=== PATIENT | female | born 1970 | race Caucasian/White ===

== ENCOUNTER 2023-06-06 13:27 | Outpatient (AMB) | payer OTHER, SELFPAY ==
--- NOTE | 2023-06-06 13:31 | A.OFFPC_ITS ---
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 Last pap approx 3 years ago in [place]. Last Mammo 2 years ago. Allergies rosuvastatin Allergy (Intermediate, Verified 06/06/23 14:22) Unknown Medication List - Last Reconciled 06/06/23 by ROMEO Freeman clonazepam 1 mg PO TID PRN paroxetine HCl 20 mg PO DAILY zolpidem 10 mg PO BEDTIME PRN Tobacco use date assessed: 06/06/23 Dental Screening Dental Screen Date: 06/06/23 Did you have a dental visit in the last 12 months?: Yes Did you have a dental problem in the last 6 months where you did not have access to dental care?: No Was dental information given to patient?: Patient has dentist HPI HPI Comments History of Present Illness Details Patient is a 52-year-old female here to establish care. Her last Pap smear was 3 years ago, will refer to [facility]LE [facility]OR. Patient's last mammogram was 2 years prior in [place] where she moved from, will order. Patient is immunized however did not get the booster for influenza or COVID this year. She has a past medical history significant for anxiety and depression, has a strong family history of hyperlipidemia. She has tried rosuvastatin in the past which gave GI problems and the patient stopped taking the medication. The patient then moved up here from [place]. Will draw a new set of labs and treat accordingly She has a past surgical history involving the left vocal cord, which was experiencing paralysis. She a thyroplasty and needs a new ENT specialist, will refer. [facility] Medical History (Updated 06/06/23 @ 14:40 by ROMEO Freeman) Insomnia Depression Anxiety Surgical History (Updated 06/06/23 @ 14:33 by ROMEO Freeman) H/O of thyroplasty Family History Mother Acute rheumatoid arthritis Paternal Aunt Hypertension Social History (Reviewed 06/06/23 @ 14:33 by SHERI Freeman Housing: House Alcohol intake: current Comment: 1 to 2 glasses of wine. Patient Tobacco Use Status: Former Tobacco user Cigarettes Per Day: 10 Years Smoked: 25 e-Cigarette/Vaping Use: Never Used service: No Current occupational status: employed Cognitive needs: No Hearing needs: No Vision needs: Yes Questionnaire PHQ-9 Over the last 2 weeks, how often have you been bothered by any of the following problems? Depression Screening Done: No Source: Developed by Drs. Pasquale Meyer, Maia Cardenas, Tyler Masterson and colleagues, with an educational lydia from [employer]. AUDIT C Alcohol Use Questionnaire (AUDIT-C) 1. How often do you have a drink containing alcohol?: Monthly or less 2. How many drinks containing alcohol do you have on a typical day when you are drinking?: 1 or 2 3. How often do you have six or more drinks on one occasion?: Never Total Score: 1 Score Reviewed/Action Taken: Yes LIZETH-7 AMB Questionnaire LIZETH-7 Assessment Billing LIZETH-7 Assessment Tool: pt declined-do not bill Review of Systems Const Details: Constitutional : No Weight loss, No Fever, No Chills, No Fatigue, No Malaise ENT/Mouth : No sore throat, No Rhinorrhea. Eyes: No Eye Pain, No Swelling, No Redness Cardiovascular : No Chest Pain, No SOB, No Dyspnea on Exertion, No Orthopnea, No Edema, No Palpitations Respiratory : No Cough, No Sputum, No Wheezing Gastrointestinal : No Nausea, No Vomiting, No Diarrhea, No Constipation, No abdominal Pain, No Hematochezia, No Melena Genitourinary : No Dysuria, No Urinary Frequency, No Hematuria, Musculoskeletal : No joint pain, No Myalgias, No Joint Swelling Skin : No Skin Lesions, No rash Neuro : No Weakness, No Numbness, No Dizziness, No Headache Psych : Admits controlled Anxiety/Panic, No Depression Heme/Lymph: No Bruising, No Bleeding,No Lymphadenopathy Endocrine : No Polyuria, No Polydipsia All other systems reviewed and are negative Physical exam (Primary Care) Vital Signs: Last Vital Signs Pulse 84 06/06/23 13:34 Pulse Ox 96 06/06/23 13:34 Oxygen Delivery Method Room Air 06/06/23 13:34 Care Plan Goal for BP management: Vital signs reviewed stable. BMI result Body Mass Index 23.3 Const Other: Appearance: Alert.? Oriented X3.? No acute distress.? ENT: Pharynx normal.? Neck: Normal inspection.? Neck supple.?Full ROM CVS: Normal heart rate and rhythm.? Pulses normal.? Respiratory: No respiratory distress.? Breath sounds normal.? Neuro: Oriented X 3.? No motor deficit.? No sensory deficit. CN 2-12 intact Assessment and Plan Assessment & Plan (1) Vocal cord paralysis: Comment: Patient has history and procedure of vocal cord paralysis. Recently moved up to [place] from [place] needs establish new ENT specialist. Will refer. Code(s): J38.00 - Paralysis of vocal cords and larynx, unspecified (2) Cold sore: Comment: Patient has history of recurrent cold sores. Will prescribe acyclovir topical cream to be applied as directed. Code(s): B00.1 - Herpesviral vesicular dermatitis Plan: Take your medications as prescribed. If you were prescribed antibiotics today, it is important that you take your medication to their entirety, do not skip any doses, do not finish them early. Follow-up with your primary care provider this week. Return to the emergency department with new or worsening symptoms. Such as fevers, chills, chest pain, shortness of breath, nausea, vomiting, dizziness, headache, vision changes, lethargy In case of emergency call 911 Plan Patient will follow-up with annual physical exam in 4-5 months. Orders: Orders Comprehensive [place]. Panel Fast Today Z91.89 - Other specified personal risk factors, not elsewhere classified Complete Blood Count Auto Diff Today Z13.0 - Encounter for screening for diseases of the blood and blood-forming organs and certain disorders involving the immune mechanism Lipid Panel Today Z13.220 - Encounter for screening for lipoid disorders Vitamin B6 Today Z13.21 - Encounter for screening for nutritional disorder Vitamin D 1,25 dihydroxy Today Z13.21 - Encounter for screening for nutritional disorder Vitamin D 25-OH (D2 and D3) Today Z13.21 - Encounter for screening for nutritional disorder Vitamin B12 Today Z13.21 - Encounter for screening for nutritional disorder TSH reflex Free T4 Today Z13.29 - Encounter for screening for other suspected endocrine disorder UA CC w/rflx Micro + Cult Today E86.0 - Dehydration Medications: New acyclovir 5% 1 appl topical ONCE 5 grams 0RF Coding Level of Care Code New Pt Level 4 (02821) Diagnoses Vocal cord paralysis J38.00 Cold sore B00.1 Time Spent (min) 45
[2023-06-06 13:34] VITALS: BP 126/82; PULSE 84; O2SAT 96; BMI 23.3
== END 2023-06-06 16:08 | disposition home or self-care (01) ==
PROVIDERS: Visit Provider Nurse Practitioner Primary Care
DX: J38.00 Paralysis of vocal cords and larynx, unspecified (principal); B00.1 Herpesviral vesicular dermatitis
CPT/HCPCS: 99204

== ENCOUNTER 2023-06-06 14:15 | Outpatient (REF) | payer OTHER, SELFPAY ==
[2023-06-06 16:03] LABS: Appearance Urine Clear; Color Urine Yellow; Glucose Urine UA Negative (Negative); Leukocyte Esterase Urine Trace (Negative); MANUAL DIFF FLAG NO; Nitrite Urine Negative (Negative); PH 7.5 (5.0-9.0); Specific Gravity - Urine <= 1.005 (1.005-1.025); UMIC TRIGGER UACC YES; Urine Blood Negative (Negative); Urine Ketones Negative (Negative); Urine Protein Negative (Neg-Trace)
[2023-06-06 16:06] LABS: Bacteria Urine None Seen (None Seen); Hyaline Casts Urine 0-2 /LPF (0-2); RBC Urine 0-2 /HPF (0-2); Squamous Epithelial Cell Urine 0-2 /HPF (0-2); WBC Urine 0-5 /HPF (0-5)
[2023-06-06 16:19] LABS: Basophils Percent Auto 0.7 % (0-2); Eosinophils Absolute Auto 0.1 X10*3/uL (0.0-0.4); Eosinophils Percent Auto 0.9 % (0-4); Hematocrit 38.5 % (37.0-47.0); Hemoglobin 12.9 g/dl (12.0-16.0); Imm Gran Abs Auto 0.02 X10*3/uL (0.00-0.03); Imm Gran Pct Auto 0.4 % (0.0-0.4); Lymphocytes Absolute Auto 1.7 X10*3/uL (1.2-4.9); Lymphocytes Percent Auto 31.6 % (20-40); Mean Corpuscular HGB Conc 33.5 g/dl (31.0-35.0); Mean Corpuscular Hemoglobin 31.4 pg (27.0-33.0); Mean Corpuscular Volume 93.7 fL (80.0-98.0); Mean Platelet Volume 10.2 fL (9.4-12.3); Monocytes Absolute Auto 0.4 X10*3/uL (0.1-1.2); Monocytes Percent Auto 7.7 % (2-11); Neutrophils Absolute Auto 3.2 x10*3/uL (2.0-8.3); Neutrophils Percent Auto 58.7 % (45-73); Platelet Count 268 X10*3/uL (160-400); Red Blood Count 4.11 X10*6/uL (4.20-5.50); Red Cell Distribution Width 13.1 % (11.0-16.0); White Blood Count 5.4 X10*3/uL (4.8-10.8)
[2023-06-06 16:26] LABS: Alanine Aminotransferase 28 U/L (0-31); Albumin Level 4.4 g/dL (3.5-5.0); Alkaline Phosphatase 73 U/L (39-117); Anion Gap 13 (12-20); Aspartate Amino Transferase 27 U/L (5-31); Bilirubin Total 0.5 mg/dL (0.0-1.0); Blood Urea Nitrogen 9 mg/dL (9-16); Calcium 10.3 mg/dL (8.4-10.2); Carbon Dioxide 26 mmol/L (22-29); Chloride 104 mmol/L (96-108); Cholesterol 305 mg/dL (<200); Estimated Glomerular Filt Rate > 60; Glucose Fasting 84 mg/dL (60-99); HDL Cholesterol 84 mg/dL (>40); LDL Cholesterol Calculated 194 mg/dL (<100); Potassium 4.1 mmol/L (3.3-5.1); Sodium 139 mmol/L (135-145); Triglycerides 136 mg/dL (<150)
[2023-06-06 16:42] LABS: TSH reflex Free T4 2.71 uIU/mL (0.32-4.0)
[2023-06-06 16:44] LABS: Vitamin B12 308 pg/mL (200-900)
[2023-06-10 12:39] LABS: Vitamin B6 17.1 ng/mL (2.1-21.7)
[2023-06-11 01:28] LABS: VITAMIN D (1,25 OH) D3 32 pg/mL; Vit D (1,25-Dihydroxy) Total 32 pg/mL (18-72); Vitamin D (1,25 OH) D2 <8 pg/mL
[2023-06-12 14:33] LABS: Vitamin D 25-OH, D2 <4 ng/mL; Vitamin D 25-OH, D3 7 ng/mL; Vitamin D 25-OH, Total 7 ng/mL (30-100)
== END 2023-06-06 14:16 | disposition home or self-care (01) ==
LOC: HO.HMGCLDS 14:15
PROVIDERS: PCP Nurse Practitioner Primary Care; Visit Provider Nurse Practitioner Primary Care
DX: E86.0 Dehydration (principal); Z13.220 Encounter for screening for lipoid disorders; Z13.21 Encounter for screening for nutritional disorder; Z13.29 Encounter for screening for other suspected endocrine disorder; Z91.89 Other specified personal risk factors, not elsewhere classified; Z13.0 Encounter for screening for diseases of the blood and blood-forming organs and certain disorders involving the immune mechanism
CPT/HCPCS: 36415; 80053; 80061; 81001; 81003; 82306; 82607; 82652; 84207; 84443; 85025

== ENCOUNTER 2023-07-22 13:57 | Emergency (ER) | payer OTHER, SELFPAY ==
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
[2023-07-22 14:15] VITALS: PULSE 113; RESP 22; TEMP 37.1; O2SAT 99; BMI 25.8
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
== END 2023-07-22 15:44 | disposition left against medical advice (07) ==
PROVIDERS: Emergency Provider Emergency Medicine
DX: Z04.71 Encounter for examination and observation following alleged adult physical abuse (principal)
CPT/HCPCS: 70450; 70486; 72125; 99281; 99284

== ENCOUNTER 2023-08-17 13:48 | Outpatient (REF) | payer OTHER, SELFPAY ==
[2023-08-25 23:29] LABS: HPV mRNA E6/E7 rflx Not Detected (Not Detected)
== END 2023-08-17 13:49 | disposition home or self-care (01) ==
LOC: HO.LNP 13:48
PROVIDERS: PCP Nurse Practitioner Primary Care; Visit Provider Obstetrics & Gynecology
DX: Z01.419 Encounter for gynecological examination (general) (routine) without abnormal findings (principal); Z11.51 Encounter for screening for human papillomavirus (HPV); Z78.0 Asymptomatic menopausal state
CPT/HCPCS: 87624; 88142; 99386

== ENCOUNTER 2023-08-17 13:48 | Outpatient (AMB) | payer OTHER, SELFPAY ==
[2023-08-17 13:58] VITALS: BP 114/62; BMI 20.2
--- NOTE | 2023-08-17 13:58 | A.OFFVIS_ITS ---
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 No complaints. Last Pap/HPV was few years ago Last Mammogram was 2 years ago Last Colonoscopy was 5 years ago, the recommendation was to repeat in 5 years [facility] Medical History Insomnia Depression Anxiety Surgical History H/O of thyroplasty Family History Mother Acute rheumatoid arthritis Paternal Aunt Hypertension Maternal Aunt Ovarian cancer Maternal Aunt Breast cancer Social History Housing: House Alcohol intake: current Comment: 1 to 2 glasses of wine. Patient Tobacco Use Status: Former Tobacco user Cigarettes Per Day: 10 Years Smoked: 25 e-Cigarette/Vaping Use: Never Used Patient : No service: No Current occupational status: employed Cognitive needs: No Hearing needs: No Vision needs: Yes Female Reproductive History Menstrual Age of Menarche: 11 control method: none Total pregnancies: 2 Full term: 1 Number of Living Children: 1 Review of Systems Const All systems reviewed & are unremarkable except as noted in HPI and below Card Reports as per HPI Resp Reports as per HPI GI Reports as per HPI and Reports no additional complaints Reports as per HPI Physical Exam Vital Signs: Last Vital Signs BP 114/62 08/17/23 13:58 BMI result Body Mass Index 20.2 Const General: cooperative, healthy appearing and comfortable Chest Chest palpation & inspection: normal inspection of the chest and normal palpation of entire chest wall Breast/axilla inspection: normal inspection of the breasts and normal inspection of the axillae Breast/axilla palpation: normal palpation of the breasts, normal palpation of the axillae and no axillary lymphadenopathy Resp Effort & Inspection: normal respiratory effort Auscultation: clear to auscultation bilaterally Percussion: percussion normal Cardio Palpation: normal PMI Rate: regular rate Rhythm: regular rhythm Heart sounds: no murmurs and no rubs Peripheral pulses: Peripheral pulses 2+ throughout GI Inspection: Yes normal to inspection Palpation (GI): Soft to palpation, nontender, no guarding, not rigid and No hepatosplenomegaly present Percussion: Yes normal to percussion Auscultation: normal bowel sounds Rectal Exam - Female: deferred General: Yes bladder normal to palpation External Female Exam: No lesion Speculum Exam - Vagina: normal appearance of the vagina, normal palpation, normal vaginal discharge and not erythematous Speculum Exam - Cervix: normal appearance of the cervix and normal palpation Bimanual exam- vagina & uterus: normal bimanual exam, normal palpation, uterine size normal, bladder normal to palpation, consistency normal and normal palpation Bimanual Exam- Adnexa, other: normal adnexae, no masses and no tenderness Assessment & Plan Assessment & Plan (1) Well woman exam: Code(s): Z01.419 - Encounter for gynecological examination (general) (routine) without abnormal findings Plan: Co testing done. Counseled the patient about the recommended dietary allowance of 1200 mg of Calcium & 600 IU of vitamin D. Mammogram ordered. The patient was referred to GI for screening colonoscopy . The patient was instructed to perform monthly self-breast exams and schedule annual exam in a year. All questions answered and the patient verbalized understanding. Orders: Orders MM tomosynthesis screening BI Today Z12.31 - Encounter for screening mammogram for malignant neoplasm of breast Referrals Gastroenterology Referral Z12.11 - Encounter for screening for malignant neoplasm of colon Coding Level of Care Code New Pt Prev Care 40-64y(87743) Diagnoses Well woman exam Z01.419
== END 2023-08-17 14:33 | disposition home or self-care (01) ==
PROVIDERS: PCP Nurse Practitioner Primary Care; Visit Provider Obstetrics & Gynecology
DX: Z01.419 Encounter for gynecological examination (general) (routine) without abnormal findings (principal)
CPT/HCPCS: 99386

== ENCOUNTER 2023-11-03 14:01 | Outpatient (AMB) | payer OTHER, SELFPAY ==
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
[2023-11-03 14:06] VITALS: BP 116/80; PULSE 95; O2SAT 98; BMI 20.3
== END 2023-11-03 15:10 | disposition home or self-care (01) ==
LOC: HO.HMGC 14:01
PROVIDERS: PCP Nurse Practitioner Primary Care; Visit Provider Nurse Practitioner Primary Care
DX: M79.641 Pain in right hand (principal); M25.561 Pain in right knee; M25.562 Pain in left knee; E78.00 Pure hypercholesterolemia, unspecified
CPT/HCPCS: 99214

== ENCOUNTER 2023-11-03 15:14 | Outpatient (REF) | payer OTHER, SELFPAY ==
--- NOTE | ~2023-11-03 | XR_ITS ---
EXAMINATION: BILATERAL KNEES, RIGHT HAND CLINICAL INFORMATION: Bilateral knee pain and right hand COMPARISON: None available. TECHNIQUE: 4 views each knee, 3 views right hand FINDINGS: No significant bone, joint or soft tissue abnormality is seen. XR/XR knee LT 4V IMPRESSION: Negative radiographs of the bilateral knees and right hand.
--- NOTE | ~2023-11-03 | XR_ITS ---
EXAMINATION: BILATERAL KNEES, RIGHT HAND CLINICAL INFORMATION: Bilateral knee pain and right hand COMPARISON: None available. TECHNIQUE: 4 views each knee, 3 views right hand FINDINGS: No significant bone, joint or soft tissue abnormality is seen. XR/XR knee RT 4V IMPRESSION: Negative radiographs of the bilateral knees and right hand.
--- NOTE | ~2023-11-03 | XR_ITS ---
EXAMINATION: BILATERAL KNEES, RIGHT HAND CLINICAL INFORMATION: Bilateral knee pain and right hand COMPARISON: None available. TECHNIQUE: 4 views each knee, 3 views right hand FINDINGS: No significant bone, joint or soft tissue abnormality is seen. XR/XR hand RT min 3V IMPRESSION: Negative radiographs of the bilateral knees and right hand.
== END 2023-11-03 15:15 | disposition home or self-care (01) ==
LOC: HO.HMGCX 15:14
PROVIDERS: PCP Nurse Practitioner Primary Care; Visit Provider Nurse Practitioner Primary Care
DX: M79.641 Pain in right hand (principal); M25.561 Pain in right knee; M25.562 Pain in left knee
CPT/HCPCS: 73130; 73564

== ENCOUNTER 2023-12-26 18:03 | Outpatient (REF) | payer OTHER, SELFPAY ==
--- NOTE | ~2023-12-26 | MR_ITS ---
EXAMINATION: MR KNEE WITHOUT CONTRAST, LEFT CLINICAL INFORMATION: Pain in the left knee COMPARISON: X-ray left knee October 2023 TECHNIQUE: MRI of the knee without contrast was performed using routine sequences on a high-field scanner. FINDINGS: MENISCI: Medial Meniscus: Intact Lateral Meniscus: Question tiny tear along the free edge of the body lateral meniscus single coronal image 16 series 19. LIGAMENTS: Cruciate: Intact Collateral: Intact EXTENSOR MECHANISM: Normal ARTICULAR CARTILAGE/BONE: Patellofemoral Compartment: There is minimal cartilage heterogeneity and surface irregularity of the medial facet of the patella with minimal cartilage heterogeneity of the lateral facet. Trochlear cartilage is normal. Overall minimal patellofemoral arthrosis. Medial Compartment: No minimal cartilage heterogeneity of the weightbearing femoral and tibial articular cartilage. Overall minimal arthrosis. Lateral Compartment: Normal JOINT FLUID AND BURSAE: There is a small to moderate-sized Tierney's cyst MR/MR knee LT wo con IMPRESSION: 1. Possible tiny tear along the free edge of the body lateral meniscus. 2. Minimal arthrosis of the patellofemoral compartment and medial compartment. 3. Small to moderate-sized Tierney's cyst. Electronically signed by: Jorge A Bacon MD 12/29/2023 08:50 AM EDT
== END 2023-12-26 18:04 | disposition home or self-care (01) ==
LOC: HO.MRI 18:03
PROVIDERS: PCP Nurse Practitioner Primary Care; Visit Provider Nurse Practitioner Primary Care
DX: M25.562 Pain in left knee (principal)
CPT/HCPCS: 73721

== ENCOUNTER 2024-01-30 12:04 | Outpatient (AMB) | payer OTHER, SELFPAY ==
[2024-01-30 12:41] VITALS: BP 126/90; PULSE 84; O2SAT 100; BMI 21.6
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
== END 2024-01-30 13:21 | disposition home or self-care (01) ==
PROVIDERS: PCP Nurse Practitioner Primary Care; Visit Provider Internal Medicine
DX: E78.5 Hyperlipidemia, unspecified (principal); S83.282A Other tear of lateral meniscus, current injury, left knee, initial encounter; F43.10 Post-traumatic stress disorder, unspecified; E55.9 Vitamin D deficiency, unspecified; E83.52 Hypercalcemia; F51.05 Insomnia due to other mental disorder; F40.9 Phobic anxiety disorder, unspecified

== ENCOUNTER → 2024-01-30 12:04 | Outpatient (BNVA) | payer OTHER, SELFPAY | PROVIDERS: PCP Nurse Practitioner Primary Care; Visit Provider Internal Medicine | DX: F43.10 Post-traumatic stress disorder, unspecified (principal); S83.282D Other tear of lateral meniscus, current injury, left knee, subsequent encounter; E78.5 Hyperlipidemia, unspecified; E83.52 Hypercalcemia; F51.05 Insomnia due to other mental disorder; F40.9 Phobic anxiety disorder, unspecified | CPT/HCPCS: 96127; 99212 ==

== ENCOUNTER 2024-02-08 14:05 | Outpatient (AMB) | payer OTHER, SELFPAY ==
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
[2024-02-08 14:21] VITALS: BMI 21.6
== END 2024-02-08 15:09 | disposition home or self-care (01) ==
PROVIDERS: PCP Nurse Practitioner Primary Care; Visit Provider Physician Assistant
DX: S83.282A Other tear of lateral meniscus, current injury, left knee, initial encounter (principal); M22.42 Chondromalacia patellae, left knee
CPT/HCPCS: 20610; 99203

== ENCOUNTER → 2024-02-08 14:05 | Outpatient (BNVA) | payer OTHER, SELFPAY | PROVIDERS: PCP Nurse Practitioner Primary Care; Visit Provider Physician Assistant | DX: S83.282A Other tear of lateral meniscus, current injury, left knee, initial encounter (principal); M22.41 Chondromalacia patellae, right knee | CPT/HCPCS: 20610; 99202; J1010; J2003 ==

== ENCOUNTER 2024-03-22 09:14 | Outpatient (REF) | payer OTHER, SELFPAY | END 2024-03-22 09:15 | disposition home or self-care (01) | LOC: HO.HOSX 09:14 | PROVIDERS: Visit Provider Physician Assistant | DX: M25.561 Pain in right knee (principal); M25.562 Pain in left knee; M22.41 Chondromalacia patellae, right knee | CPT/HCPCS: 73560; 99212 ==

== ENCOUNTER 2024-03-22 12:43 | Outpatient (AMB) | payer OTHER, SELFPAY ==
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
[2024-03-22 13:11] VITALS: BMI 21.6
== END 2024-03-22 13:32 | disposition home or self-care (01) ==
PROVIDERS: PCP Nurse Practitioner Primary Care; Visit Provider Physician Assistant
DX: M22.41 Chondromalacia patellae, right knee (principal)
CPT/HCPCS: 99213; G2211

== ENCOUNTER 2024-03-30 15:05 | Outpatient (AMB) | payer OTHER, SELFPAY ==
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
== END 2024-03-30 17:00 | disposition home or self-care (01) ==
LOC: HO.HOP 15:05
PROVIDERS: PCP Internal Medicine; Visit Provider Clinical Nurse Specialist Psychiatric/Mental Health
DX: F43.10 Post-traumatic stress disorder, unspecified (principal)
CPT/HCPCS: 90792

== ENCOUNTER → 2024-03-30 15:05 | Outpatient (BNVA) | payer OTHER, SELFPAY | PROVIDERS: PCP Internal Medicine; Visit Provider Clinical Nurse Specialist Psychiatric/Mental Health | DX: F43.10 Post-traumatic stress disorder, unspecified (principal); Z71.89 Other specified counseling | CPT/HCPCS: 90792 ==

== ENCOUNTER 2024-04-24 10:56 | Outpatient (REF) | payer OTHER, SELFPAY ==
--- OUTSIDE RECORDS SUMMARY | 2024-04-24 11:23 | XMS_ITS | Continuity of Care Document ---
Author Organization [facility] Address [address] [facility] [facility] [address] [place] [address] Phone Care Team Providers Care Aligner Barrel And Receiver Name Role Phone Makenzie CHILDERS, Maulik Unavailable [...] Providers Copied on Encounter [facility], [address] [place], [place] [address], [place], [place], [id number], [place] tel:[phone] [facility] [place] Office No Information 9 Makenzie Willingham. [address] [facility] [address], [place], [place], [id number] . tel:[phone] Referring Provider: Maulik Reed, [address] [facility] [address], [place], [place], [id number]. tel:[phone] Office/outpa tient visit,est, mod [facility], [address] [place] [address], [place], [place], [id number], tel:[phone] [facility] Office right foot pain (chief complaint) intermediate frame tender (current) use of opiate analgesicNondispl aced fracture of 5th metatarsal bone of right foot, subsequent encounter for fracture w/ delayed healingNondisp fx of fifth metatarsal bone, r foot, init for opn fx 9 Opheliadeb Emmanuelle. [address] [place] [address] [address], [place], [place], [id number] , . tel: [phone] Referring Provider: Maulik Reed, [address] [place] [address], [place], [place], [id number]. tel:[phone] New Pt, Moderate 45min [facility], [address] [place] [address], [id number], tel:[phone] [facility] Office right foot pain (chief complaint) Nondisp fx of fifth metatarsal bone, r foot, init for opn fxLong term (current) use of opiate analgesic 8 Makenzie Willingham. [address] [place] [address], [place], [place], [id number] . tel: [phone] Referring Provider: Maulik Reed, [address] [place] [address], [place], [place], [id number]. tel:[phone] Family History Family Member Type Diagnosis Age At Onset No Information Payers Payer name Insurance type Covered republican ID Authorlarisaa tirenny(s) [facility] [id number] Social History Type Description Quantity Date Captured [...] and rest. right foot pain (comments) lizzette nt states she has constant pain in her [...]
== END 2024-04-24 10:57 | disposition home or self-care (01) ==
LOC: HO.MRI 10:56
PROVIDERS: PCP Internal Medicine; Visit Provider Physician Assistant
DX: M17.11 Unilateral primary osteoarthritis, right knee (principal)
CPT/HCPCS: 73721

== ENCOUNTER 2025-02-06 08:19 | Outpatient (AMB) | payer OTHER, SELFPAY ==
--- OUTSIDE RECORDS SUMMARY | 2018-08-29 08:22 | XMS_ITS | Continuity of Care Document ---
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 [address] [place] [address], [place], [id number] . tel:[phone] Referring Provider: Maulik Reed, [address] [place] [address] 200, [place], [place], [id number]. 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 [address] [place] [address] 200, [place], [place], [id number] , [place]. tel: [phone] Referring Provider: Maulik Reed, [address] [place] [address], [place], [place], [id number]. tel:[phone] New Pt, Moderate 45min [facility] , [address] [place] [address], [id number], [phone] [facility] right foot pain (chief complaint) Nondisp fx of fifth metatarsal bone, r foot, init for opn fxLong term (current) use of opiate analgesic 8 Makenzie Willingham. [address] [place] [address], [place], [place], [id number] . tel:[phone] Referring Provider: Maulik Reed, [address] [place] [address], [place], [place], [id number]. tel:[phone] Family History Family Member Type Diagnosis Age At Onset No Information Payers Payer name Insurance type Covered libertarian ID Tae grossman(s) [facility] [id number] Social History Type Description Quantity Date Captured [...]
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
[2025-02-06 08:46] VITALS: BP 110/82; PULSE 100; RESP 16; TEMP 36.8; O2SAT 100; BMI 21.1
== END 2025-02-06 09:54 | disposition home or self-care (01) ==
LOC: HO.HMCC 08:20
PROVIDERS: PCP Nurse Practitioner Primary Care; Visit Provider Internal Medicine
DX: Z23 Encounter for immunization (principal)

== ENCOUNTER 2025-02-06 08:19 | Outpatient (REF) | payer OTHER, SELFPAY ==
--- OUTSIDE RECORDS SUMMARY | 2025-02-06 11:07 | XMS_ITS | Clinical Summary ---
Author Organization [facility] Address [address] [address] Care Team Providers Care Nitro Man Name Role Phone Leta Harp MD Primary Care Provider [phone] Social History Tobacco Use Types Packs/Day Years Used Date Smoking Tobacco: Never Assessed Comments Unknown Sex and Gender Information Value Date Recorded Sex Assigned at Female 03/28/2024 11:12 AM EST Legal Sex Female 8:44 AM EST Gender Identity Female 03/28/2024 11:12 AM EST Sexual Orientation Straight 03/28/2024 11 :12 AM EST Plan of Treatment Health Maintenance Due Date Last Done Comments CT Colonography 1968 Colonoscopy 1968 Colorectal Cancer Screening 1968 FIT-DNA 1968 FIT 1968 FOBT 1968 HIV Screening 1968 Lipid Panel 1968 Sigmoidoscopy 1968 MMR Vaccines (1 of 1 - Stand ousmane series) 1969 Hepatitis C Screening 1986 DTaP/Tdap/Td Vaccines (1 - Tdap) 08/10/1987 Hepatitis B Vaccines (1 of 3 - 19+ 3-dose series) 08/10/1987 Pap Smear 1989 Cervical Cancer Screening 1998 HPV/Cotest 1998 Mammogram 2008 Pneumococcal Vaccine: 50+ Ye ars (1 of 1 - PCV) 2018 Zoster Vaccines (1 of 2) 2018 Depression Screening 05/09/2024 COVID-19 Vaccine (1 - 2023-2 5 season) 2025 Influenza Vaccine (#1) 2025 HIB Vaccines Aged Out No longer eligi ble based on patient's age to complete this topic HPV Vaccines Aged Out No longer eligi ble based on patient's age to complete this topic Hepatitis A Vaccines Aged Out No long er eligible based on patient's age to complete this topic IPV Vaccines Aged Out No longer eligi ble based on patient's age to complete this topic Meningococcal B Vaccine Aged Out No l onger eligible based on patient's age to complete this topic Meningococcal Vaccine Aged Out No reed chata eligible based on patient's age to complete this topic Rotavirus Vaccines Aged Out No longer eligible based on patient's age to complete this topic Insurance [employer] QHP NONSUBSIDIZED Care Teams Nitro Man Relationship Specialty Start Date End Date Leta Harp MD [address] [place] [address] [phone] PCP - General Regional Truck Driver 03/28/24
[2025-02-06 13:06] LABS: MANUAL DIFF FLAG NO
[2025-02-06 13:13] LABS: Hematocrit 34.2 % (37.0-47.0); Hemoglobin 12.0 g/dl (12.0-16.0); Imm Gran Abs Auto 0.01 X10*3/uL (0.00-0.03); Imm Gran Pct Auto 0.3 % (0.0-0.4); Lymphocytes Absolute Auto 1.5 X10*3/uL (1.2-4.9); Mean Corpuscular HGB Conc 35.1 g/dl (31.0-35.0); Mean Corpuscular Hemoglobin 33.1 pg (27.0-33.0); Mean Corpuscular Volume 94.2 fL (80.0-98.0); NRBC Abs Auto 0.000 X10*3/uL (0.0-0.012); NRBC Pct Auto 0.0 /100WBC (0.0-0.2); Platelet Count 243 X10*3/uL (160-400); Red Blood Count 3.63 X10*6/uL (4.20-5.50); White Blood Count 3.4 X10*3/uL (4.8-10.8)
[2025-02-06 13:53] LABS: Alanine Aminotransferase 138 U/L (0-31); Anion Gap 15 (12-20); Aspartate Amino Transferase 233 U/L (5-31); Blood Urea Nitrogen 7 mg/dL (9-16); Calcium 9.9 mg/dL (8.4-10.2); Carbon Dioxide 26 mmol/L (22-29); Chloride 102 mmol/L (96-108); Cholesterol 330 mg/dL (<200); Estimated Glomerular Filt Rate > 60; HDL Cholesterol 91 mg/dL (>40); Potassium 3.6 mmol/L (3.3-5.1); Sodium 139 mmol/L (135-145); Triglycerides 88 mg/dL (<150)
== END 2025-02-06 08:20 | disposition home or self-care (01) ==
LOC: HO.HMGCLDS 08:19
PROVIDERS: PCP Internal Medicine; Visit Provider Internal Medicine
DX: Z00.01 Encounter for general adult medical examination with abnormal findings (principal); Z23 Encounter for immunization; E78.5 Hyperlipidemia, unspecified; F43.10 Post-traumatic stress disorder, unspecified; E55.9 Vitamin D deficiency, unspecified
CPT/HCPCS: 36415; 80048; 80061; 82306; 84450; 84460; 85025; 90471; 90656; 96127; 99396

== ENCOUNTER 2025-03-04 11:56 | Outpatient (AMB) | payer OTHER, SELFPAY ==
--- OUTSIDE RECORDS SUMMARY | 2018-08-29 08:22 | XMS_ITS | Continuity of Care Document ---
Author Organization [facility] Address [address] [place] [address] Phone Care Team Providers Care Stick Feeder Name Role Phone Makenzie CHILDERS, Maulik Unavailable [...] on Encounter [facility] , [address] [place] [address], [id number], tel:[phone] [facility] Office No Information 9 Makenzie Willingham. [address] [place] [address], [place], [id number] . tel:[phone] Referring Provider: Maulik Reed, [address] [place] [address], [place], [place], [id number]. tel:[phone] Office/outpa tient visit,est, mod [facility] , [address] [place] [address], [id number], [phone] [facility] Office right foot pain (chief complaint) intermediate accountant (current) use of opiate analgesicNondisplac ed fracture of 5th metatarsal bone of right foot, subsequent encounter for fracture w/ delayed healingNondisp fx of fifth metatarsal bone, r foot, init for opn fx 9 Opheliadeb Emmanuelle. [address] [place] [address], [place], [place], [id number] , [place]. tel: [phone] Referring Provider: Maulik Reed, [address] [place] [address], [place], [place], [id number]. tel:[phone] New Pt, Moderate 45min [facility] , [address] [place] [address], [id number], [phone] [facility] Office right foot pain (chief complaint) Nondisp fx of fifth metatarsal bone, r foot, init for opn fxLong term (current) use of opiate analgesic 8 Makenzie Willingham. [address] [place] [address], [place], [place], [id number] . tel:[phone] Referring Provider: Maulik Reed, [address] [place] [address], [place], [place], [id number]. tel:[phone] Family History Family Member Type Diagnosis Age At Onset No Information Payers Payer name Insurance type Covered alliance party ID Tae grossman(s) [id number] Social History Type Description Quantity Date Captured [...]
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
--- OUTSIDE RECORDS SUMMARY | 2025-03-04 15:24 | XMS_ITS | Patient Health Record ---
Author Organization [facility] Address [address] [place] [address] Care Team Providers Care Metal Dealer Name Role Phone Belem Lopez Unavailable [phone] Allergies No Known Allergies Reason For Referral No Information Medications Medication SIG (Take, Route, Frequency, Duration) Notes Start Date End Date Status Diphenoxylate-Atropine 2.5-0.025 MG Tablet Diphenoxylate-Atropin e 2.5-0.025MG, 1 (one) Tablet daily # 30, 04/10/2020, Ref. x3. Active Oral daily; Duration: 30 prn diarrhea 04/10/2020 Active Sertraline HCl 50 MG Tablet Sertraline HCl( 50MG Oral 1 daily ) Active -Hx Entry Oral daily; Duration: 0 03/18/2020 Active Cholestyramine 4 GM Packet Cholestyramine 4GM, 1 (one) Packet daily # 30, 04/09/2020, Ref. x2. Active Oral daily; Duration: 30 take 4 hours apart from other meds once a day 04/09/2020 Active KlonoPIN 1 MG Tablet KlonoPIN( 1MG Oral as needed ) Active -Hx Entry Oral as needed; Duration: 0 03/18/2020 Active Social History Social History Additional Details Category Social Info Options Details Migrated Social History Migrated Social History (Migrated Social History):Problem Title : Alcohol use, Problem Status : Active, Attribute Title : Occasional alcohol use,, Problem Title : Marital status, Problem Status : Active, Attribute Title : ,, Problem Title : Tobacco use, Problem Status : Active, Attribute Title : Former smoker, Problems Problem Type SNOMED Code ICD Code Onset Dates Problem Status W/U Status Risk Notes Problem Anxiety state (008675801) Anxiety state, unspecified (300.00) Active confirmed Problem Change in bowel habit (26931958) Change in bowel habit (R19.4) Active confirmed Problem Diarrhea (65907967) Diarrhea, unspecified (R19.7) Active confirmed Problem Screening for malignant neoplasm of colon (885569519) Encounter for screening for malignant neoplasm of colon (Z12.11) Active confirmed Problem BMI 25-29 - overweight (117686543) Body mass index (BMI) 25.0-25.9, adult (Z68.25) Active confirmed Problem History of polyp of colon (situation) (747268341) Personal history of colonic polyps (Z86.010) Active confirmed Problem Nicotine dependence (60667741) Personal history of nicotine dependence (Z87.891) Active confirmed Problem Former smoker (7981122) Former smoker (Z87.891) Active confirmed Problem History of polyp of colon (situation) (041858046) History of colon polyps (Z86.010) Active confirmed Problem Body mass index 25-29 - overweight (631345464) BMI 25.0-25.9,adult (Z68.25) Active confirmed Problem Change in bowel habit (59217920) Change in bowel habits (R19.4) Active confirmed Problem Screening colonoscopy (780962079) Encounter for screening colonoscopy (Z12.11) Active confirmed Problem Diarrhea (70841435) DIARRHEA, UNSPECIFIED TYPE (R19.7) Active confirmed Problem Anxiety (76466370) ANXIETY (300.00) Active confirmed Plan Of Treatment Next Appt Details Provider Name:Provider Henrietta grossman, 04/09/2025 09:00:00 AM, [address], [place], [address], Insurance Providers Payer Name Payer Address Payer Phone Subscriber Number Group Number Insured Name Patient Relationship to Insured Coverage Start Date Coverage End Date [facility] 1944 [address] [place] [phone] [id number] Tory Cruz Self - patient is the insured Medical (General) History Surgical History Surgery Date(Month/Year) Problem Title : No Surgeries, Problem St atus : Active,
--- OUTSIDE RECORDS SUMMARY | 2025-03-04 15:24 | XMS_ITS | Clinical Summary ---
Author Organization [facility] Address [address] [address] Care Team Providers Care Diabetes Trainer Name Role Phone Leta Harp MD Primary Care Provider [phone] Social History Tobacco Use Types Packs/Day Years [...] Depression Screening 05/09/2024 COVID-19 Vaccine (1 - 2024-2 6 season) 2025 Influenza Vaccine (#1) 2025 HIB [...] Insurance [employer] DIRECT [employer] NONSUBSIDIZED Care Teams Diabetes Trainer Relationship Specialty Start Date End Date Leta Harp MD [address] [place] [address] [id number] PCP - General Senior It Assistant 03/28/24
== END 2025-03-04 13:51 | disposition home or self-care (01) ==
LOC: HO.HOP 11:56
PROVIDERS: PCP Internal Medicine; Visit Provider Clinical Nurse Specialist Psychiatric/Mental Health
DX: F43.11 Post-traumatic stress disorder, acute (principal)
CPT/HCPCS: 99214

== ENCOUNTER → 2025-03-04 11:56 | Outpatient (BNVA) | payer OTHER, SELFPAY | PROVIDERS: PCP Internal Medicine; Visit Provider Clinical Nurse Specialist Psychiatric/Mental Health | DX: F43.10 Post-traumatic stress disorder, unspecified (principal) | CPT/HCPCS: 99212 ==

== ENCOUNTER 2025-04-22 13:58 | Outpatient (AMB) | payer OTHER, SELFPAY ==
--- OUTSIDE RECORDS SUMMARY | 2018-08-29 07:22 | XMS_ITS | Continuity of Care Document ---
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 Name Role Phone Makenzie CHILDERS, Maulik Unavailable Unavailable Allergies, Adverse Reactions, Alerts Substance Reaction Status Criticality No Known Allergies Active No Inform ation Medications Medication Instructions Dosage Effective Dates (start - stop) Status Comments Lexapro 5 mg tablet take 1 tablet by ora l route every day 5 MG - Active Klonopin 1 mg tablet take 1 tablet by OR AL route 2 times every day 1 MG - Active Procedures Procedure Date Office/outpatient visit,est, mod 2018 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 [address] [place] [address], [id number] . tel:[phone] Referring Provider: Maulik Reed, [address] [place] [address], [place], [place], [id number]. tel:[phone] Office/outpa tient visit,est, mod [facility] , [address] [place] [address], [id number], [phone] [facility] Office right foot pain (chief complaint) FPC (current) use of opiate analgesicNondisplac ed fracture of 5th metatarsal bone of right foot, subsequent encounter for fracture w/ delayed healingNondisp fx of fifth metatarsal bone, r foot, init for opn fx 9 Opheliadeb Emmanuelle. [address] [place] [address] 200, [place], [place], [id number] , [place]. tel: [phone] Referring Provider: Maulik Reed, [address] [place] [address], [place], [place], [id number]. tel:[phone] New Pt, Moderate 45min [facility] , [address] [place] [address], [id number], [phone] [facility] Office right foot pain (chief complaint) Nondisp fx of fifth metatarsal bone, r foot, init for opn fxLong term (current) use of opiate analgesic 8 Makenzie Willingham. [address] [place] [address] 200, [place], [place], [id number] . tel:[phone] Referring Provider: Maulik Reed, [address] [place] [address] 200, [place], [place], [id number]. tel:[phone] Family History Family Member Type Diagnosis Age At Onset No Information Payers Payer name Insurance type Covered republican ID Tae grossman(s) [facility] [id number] Social History Type Description Quantity Date Captured Comments Alcohol Use Details Unknown Caffeine Use Details Unknown Tobacco Use Status No Information Smoking Status No Information Sex Female Chief Complaint And Reason For Visit No Information Plan Of Treatment Date Type Action Status No Information History Of Present Illness Encounter Date Complaint History Of Prese nt Illness right foot pain (comments) Patie nt states Dr. Dolly Rubin ordered repeat RT foot MRI, work comp has not approved or scheduled yet. Patient saw Dr. Rubin on 06/16/2018. Patient is currently taking Tylenol #3 and Percocet as needed. Patient is unsure if refills are needed today. Patient hasn't taken Percocet in 2 weeks. Patient states she only takes with severe pain. Patient states they have not been to the ER or had any recent imaging in regards to their pain. Patient states current pain level is 0/10. Patient states pain level at the worst 10/10. right foot pain Onset: on 2017. It occurs occasionally. Location: right foot. The pain is aching and throbbing. The pain is aggravated by walking, standing and direct pressure. The pain is relieved by ice, pain/RX meds and rest. right foot pain (comments) lizzette ha states she has constant pain in her right foot. patient states on 02/22/18 she fell at work injuring her right foot. patient states her right foot was fractured. patient states she sees Dr Bryon Dias and has been told she does not need surgery. patient states the highest her pain level can get is 7/10. patient states she has not had any physical therapy. right foot pain Onset: on 2017. Severity level is moderate. It occurs constantly. Location: right foot. The pain is aching, dull, sharp and stabbing. Context: work injury. The pain is aggravated by movement and using scooter. The pain is relieved by laying down with right foot elevated. Instructions Date Instruction Additional Infor mation No Information Assessments Type Assessment Date No Information
--- OUTSIDE RECORDS SUMMARY | 2025-04-09 04:00 | XMS_ITS ---
Author Organization [facility] Address [address] [place] [address] Care Team Providers Care Operations Administrator Name Role Phone Belem Lopez Unavailable [phone] Migration, Provider Unavailable Unavailable REASON FOR VISIT EMR-Kody Encounters Encounter Location Date Provider Diagnosis [facility] [address] [place] [address] 04/09/2025 Provider Migration Plan Of Treatment No Information Progress Notes * AUGUSTAOscar MILLERB:08/09 (54 yo F)Acc No.[id number]:04/09/2025 Patient: Tory Berg Provider: Cristi guerrero Migration :1970 A ge:54 Y S ex:Female Date:04/09/2025 Address:[address] [place] [address], [facility] Subjective: * Chief Complaints: * E MR-Kody Plan: * Procedure Codes: 4 5378 Diagnostic colonoscopy Billing Information: * Procedure Codes: 14587 Diagnostic colonoscopy. * Electronic signature of Prov ider Migration on 04/22/2025 at 08:21 PM EST Sign off status: Pending * Provider: Cristi guerrero Migration Date: 06/10/2024 Generated for Dami cantu/Le/eTransmitting on: 06/23/2024 08:21 PM EST
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
--- OUTSIDE RECORDS SUMMARY | 2025-04-22 20:21 | XMS_ITS | Patient Health Record ---
Author Organization [facility] Address [address] [place] [address] Care Team Providers Care Hoisting Engine Operator Name Role Phone Belem Lopez Unavailable [phone] Migration, Provider Unavailable Unavailable Allergies No Known Allergies Reason For Referral [...] W/U Status Risk Notes Problem Anxiety state (096028299) Anxiety state, unspecified (300.00) Active confirmed Problem Change in bowel habit (43814598) Change in bowel habit (R19.4) Active confirmed Problem Diarrhea (80112845) Diarrhea, unspecified (R19.7) Active confirmed Problem Screening for malignant neoplasm of colon (532094584) Encounter for screening for malignant neoplasm of colon (Z12.11) Active confirmed Problem BMI 25-29 - overweight (451707433) Body mass index (BMI) 25.0-25.9, adult (Z68.25) Active confirmed Problem History of polyp of colon (situation) (543830902) Personal history of colonic polyps (Z86.010) Active confirmed Problem Nicotine dependence (50095458) Personal history of nicotine dependence (Z87.891) Active confirmed Problem Former smoker (3910324) Former smoker (Z87.891) Active confirmed Problem History of polyp of colon (situation) (128814872) History of colon polyps (Z86.010) Active confirmed Problem Body mass index 25-29 - overweight (877004192) BMI 25.0-25.9,adult (Z68.25) Active confirmed Problem Change in bowel habit (98163289) Change in bowel habits (R19.4) Active confirmed Problem Screening colonoscopy (696874930) Encounter for screening colonoscopy (Z12.11) Active confirmed Problem Diarrhea (32705133) DIARRHEA, UNSPECIFIED TYPE (R19.7) Active confirmed Problem Anxiety (54995915) ANXIETY (300.00) Active confirmed Encounters Encounter Location Date Provider Diagnosis [facility] [address] [place] [address] 04/09/2025 Provider Migration Plan Of Treatment No Information Insurance Providers Payer Name Payer Address Payer Phone Subscriber Number Group Number Insured Name Patient Relationship to Insured Coverage Start Date Coverage End Date [facility] 1944 [address] [place] [phone] [id number] Ninitristen Tory Self - patient is the insured Medical (General) History Surgical History Surgery Date(Month/Year) Problem Title : No Surgeries, Problem St atus : Active,
--- OUTSIDE RECORDS SUMMARY | 2025-04-22 20:21 | XMS_ITS | Clinical Summary ---
Author Organization [facility] Address [address] [facility] [address] [place] [address] Care Team Providers Care Heating Unit Installer Name Role Phone Leta Harp MD Primary Care Provider [phone] Social History Tobacco Use Types Packs/Day Years Used Date Smoking Tobacco: Never Assessed Comments Unknown Sex and Gender Information Value Date Recorded Sex Assigned at Female 03/28/2024 11:12 AM EST Legal Sex Female 8:44 AM EST Gender Identity Female 03/28/2024 11:12 AM EST Sexual Orientation Straight 03/28/2024 11 :12 AM EST Plan of Treatment Not on file [facility] NON[facility]BSID[facility] Care Teams Heating Unit Installer Relationship Specialty Start Date End Date Leta Harp MD [address] [place] [address] PCP - General Estimation Manager 03/28/24
== END 2025-04-22 13:59 | disposition home or self-care (01) ==
LOC: HO.HOP 13:58
PROVIDERS: PCP Internal Medicine; Visit Provider Clinical Nurse Specialist Psychiatric/Mental Health
DX: F43.11 Post-traumatic stress disorder, acute (principal)
CPT/HCPCS: 98006